=== PATIENT | female | born 1965 | race Caucasian/White ===

== ENCOUNTER 2024-07-28 03:01 | Inpatient (IN) | payer BC, OTHER ==
[2024-07-28] MEDS ORDERED: Ondansetron PF 4 MG/2 ML Vial ONE ×3 (03:39→11:44)
[2024-07-28] MEDS ORDERED: Ketorolac Tromethamine 30 MG (1 mL) VIAL ONE ×2 (03:39→12:14)
[2024-07-28] MEDS ORDERED: Morphine 4 MG/ML VIAL ONE ×3 (03:39→08:08)
[2024-07-28 04:08] LABS: #Basophils 0.04 10x3/uL (0.0-0.2); %Basophils 0.3 % (0.0-1.0); %Eosinophils 0.6 % (0.0-10.0); %Lymphocytes 8.4 % (21.0-51.0); %Monocytes 4.9 % (0.0-10.0); %Neutrophils 85.3 % (42.0-75.0); Hematocrit 41.3 % (36.0-47.0); Hemoglobin 13.7 g/dL (12.0-16.0); Mean Corpuscular HGB CONC 33.2 g/dL (32.0-36.0); Mean Corpuscular Hemoglobin 27.8 pg (27.0-31.0); Mean Corpuscular Volume 83.9 fL (78.0-98.0); Mean Platelet Volume 9.3 fL (7.4-10.4); Platelet Count 321 10x3/uL (130-400); RBC Distribution Width 14.6 % (11.5-14.5); Red Blood Cell (RBC) Count 4.92 mill/uL (4.20-5.40)
[2024-07-28] MEDS ORDERED: Famotidine/PF 20 mg/2ml Vial ONE ×2 (04:26→12:32)
[2024-07-28 04:33] LABS: Anion Gap 16 mmol/L (10-20); BUN (Urea Nitrogen) 21 mg/dL (9.8-20.1); Calc. Creatinine Clearance 0 mL/min (70-130); Carbon Dioxide 21 mmol/L (22-29); Chloride 106 mmol/L (98-107); Potassium 3.9 mmol/L (3.5-5.1); Sodium 139 mmol/L (136-145)
[2024-07-28 04:34] LABS: ALT (SGPT) 50 U/L (8-55); AST (SGOT) 21 U/L (5-34); Albumin 4.2 g/dL (3.5-5.0); Alkaline Phosphatase 110 U/L (40-110); Bilirubin, Total 0.2 mg/dL (0.2-1.2); Calcium 9.5 mg/dL (7.8-10.44); Estimated GFR 101; Globulin 3.4 g/dL (2.4-3.5); Glucose 132 mg/dL (70-105); Lipase 20 U/L (8-78); Protein, Total 7.6 g/dL (6.0-8.3)
[2024-07-28] MEDS ORDERED: Piperacillin/Tazobactam 4.5 GM VIAL ONE (05:23)
[2024-07-28] MEDS ORDERED: Dextrose 50% Abboject 50 ML SYRINGE SLOW IVP PRN ×2 (09:25→14:12)
[2024-07-28] MEDS ORDERED: Ondansetron PF 4 MG/2 ML Vial IVP PRN ×2 (09:25→14:12)
[2024-07-28] MEDS ORDERED: traMADol HCl 50 MG TAB PO PRN (09:25)
[2024-07-28] MEDS ORDERED: Ipratropium/Albuterol 3 ML NEB NEB PRN (09:25)
[2024-07-28] MEDS ORDERED: hydrALAZINE 20 MG/ML VIAL SLOW IVP PRN (09:25)
[2024-07-28] MEDS ORDERED: Mag-Al 1200 mg/1200 mg/30 ML UDCUP PO PRN (09:25)
[2024-07-28] MEDS ORDERED: Dextrose 5% in Water 1,000 ML IV PRN ×2 (09:25→14:12)
[2024-07-28] MEDS ORDERED: Calcium Carbonate 500 MG ChewTAB PO PRN ×2 (09:25→14:12)
[2024-07-28] MEDS ORDERED: Glucagon 1 MG/ML KIT IM PRN ×2 (09:25→14:12)
[2024-07-28] MEDS ORDERED: Rocuronium Bromide 10 MG/ML (10ML VIAL) ONE (11:44)
[2024-07-28] MEDS ORDERED: Lidocaine 1% PF 5 ML VIAL ONE (11:44)
[2024-07-28] MEDS ORDERED: Midazolam HCl 2 mg/2 ml Vial ONE (11:44)
[2024-07-28] MEDS ORDERED: PROPOFOL 20 ML ONE (11:44)
[2024-07-28] MEDS ORDERED: Dexamethasone 4 mg/ml Vial ONE (11:44)
[2024-07-28] MEDS ORDERED: fentaNYL PF 100 MCG/2 ML SYRINGE ONE (11:44)
[2024-07-28] MEDS ORDERED: SUGAMMADEX SODIUM 200 MG/2 ML VIAL ONE (11:44)
[2024-07-28] MEDS ORDERED: SUCCINYLCHOLINE/SOD CL,ISO/PF 200 MG/10 ML SYRINGE FS ONE (11:50)
[2024-07-28] MEDS ORDERED: fentaNYL 50 mcg/mL 1 mL Vial ONE (12:14)
[2024-07-28] MEDS ORDERED: Indocyanine Green 25 MG/10 ML VIAL ONE (12:19)
[2024-07-28] MEDS ORDERED: EPINEPHrine 1 MG/ML VIAL ONE (12:26)
[2024-07-28] MEDS ORDERED: Bupivacaine 0.25% HCL 30 ML VIAL ONE (12:26)
[2024-07-28] MEDS ORDERED: HYDROmorphone 0.5 MG/0.5 ML SYRINGE ONE (14:09)
[2024-07-28] MEDS ORDERED: HYDROcodone/Acetaminophen 10/325 mg Tablet PO PRN (14:12)
[2024-07-28] MEDS: D5 1/2 NS w/20 mEq KCL 1,000 ML IV SCH (16:50)
[2024-07-28] MEDS: Piperacillin/Tazobactam 3.375 GM in Sodium Chloride 0.9% 100 ML IVPB SCH ×3 (16:50→19:51)
[2024-07-28] MEDS: Ketorolac Tromethamine 30 MG (1 mL) VIAL IVP SCH (18:14)
[2024-07-28] MEDS: Famotidine/PF 20 mg/2ml Vial SLOW IVP SCH (19:52)
[2024-07-28] MEDS: Famotidine 20 MG TAB PO SCH (19:52)
[2024-07-28] MEDS: Docusate 100 MG CAP PO SCH (19:52)
[2024-07-28] MEDS ORDERED: Famotidine/PF 20 mg/2ml Vial SLOW IVP SCH (21:00)
[2024-07-28] MEDS ORDERED: Famotidine 20 MG TAB PO SCH (21:00)
[2024-07-28 22:54] VITALS: BMI 40.6
[2024-07-29] MEDS: Acetaminophen 325 MG TAB PO PRN (05:02)
[2024-07-29 06:21] LABS: #Basophils 0.05 10x3/uL (0.0-0.2); #Eosinophils Less than 0.03 10x3/uL (0.0-0.7); %Basophils 0.4 % (0.0-1.0); %Eosinophils 0.1 % (0.0-10.0); %Lymphocytes 12.3 % (21.0-51.0); %Monocytes 10.3 % (0.0-10.0); %Neutrophils 76.5 % (42.0-75.0); Hematocrit 36.5 % (36.0-47.0); Hemoglobin 12.3 g/dL (12.0-16.0); Mean Corpuscular HGB CONC 33.7 g/dL (32.0-36.0); Mean Corpuscular Hemoglobin 28.2 pg (27.0-31.0); Mean Corpuscular Volume 83.7 fL (78.0-98.0); Mean Platelet Volume 9.8 fL (7.4-10.4); Platelet Count 288 10x3/uL (130-400); RBC Distribution Width 15.2 % (11.5-14.5); Red Blood Cell (RBC) Count 4.36 mill/uL (4.20-5.40)
[2024-07-29 06:23] LABS: ALT (SGPT) 183 U/L (8-55); AST (SGOT) 90 U/L (5-34); Albumin 3.3 g/dL (3.5-5.0); Alkaline Phosphatase 100 U/L (40-110); Anion Gap 13 mmol/L (10-20); BUN (Urea Nitrogen) 9 mg/dL (9.8-20.1); Bilirubin, Total 0.6 mg/dL (0.2-1.2); Calc. Creatinine Clearance 171 mL/min (70-130); Calcium 8.4 mg/dL (7.8-10.44); Carbon Dioxide 21 mmol/L (22-29); Chloride 110 mmol/L (98-107); Estimated GFR 104; Globulin 3.1 g/dL (2.4-3.5); Glucose 107 mg/dL (70-105); Potassium 3.5 mmol/L (3.5-5.1); Protein, Total 6.4 g/dL (6.0-8.3); Sodium 140 mmol/L (136-145)
[2024-07-29] MEDS ORDERED: Non-Formulary Item 1 EACH (Fexofenadine Hcl [Allegra Allergy] 180 MG Tablet) PO SCH (10:38)
[2024-07-29 11:29] VITALS: BP 118/67; TEMP 98.3
[2024-07-29] MEDS: Loratadine 10 MG TAB PO SCH (11:37)
[2024-07-29] MEDS: LEVOCETIRIZINE DIHYDROCHLORIDE PO SCH (11:42)
[2024-07-29] MEDS: HYDROcodone/Acetaminophen 5/325 mg Tablet PO PRN (14:43)
[2024-07-30] MEDS ORDERED: Loratadine 10 MG TAB PO SCH (09:00)
== END 2024-07-29 14:45 | disposition home or self-care (01) | DRG 419 ==
LOC: ERS 03:01 → SDC 11:45 → SURG B 16:10
PROVIDERS: ADMIT Surgery; ATTEND Surgery
PROC: 0FT44ZZ Resection of Gallbladder, Percutaneous Endoscopic Approach (ICD-10-PCS; principal; 2024-07-28)
PROC: BF131ZZ Fluoroscopy of Gallbladder and Bile Ducts using Low Osmolar Contrast (ICD-10-PCS; 2024-07-28)
PROC: 8E0W4CZ Robotic Assisted Procedure of Trunk Region, Percutaneous Endoscopic Approach (ICD-10-PCS; 2024-07-28)
DX: K80.00 Calculus of gallbladder with acute cholecystitis without obstruction (principal); Z79.899 Other long term (current) drug therapy
CPT/HCPCS: 36415; 76705; 80053; 83690; 85025; 88304; 93005; 96374; 96375; 96376; C1889; J0171; J0665; J1100; J1171; J1885; J2250; J2270; J2405; J2543; J2704; J3010; J3480; J3490; S2900